=== PATIENT | female | born 1980 | race Caucasian/White ===

== ENCOUNTER 2017-05-06 12:32 | Outpatient (CLI) ==
[2016-03-22 21:35] VITALS: BMI 26.8
--- NOTE | 2017-05-06 13:28 | US ---
EXAM: Ultrasound pelvis HISTORY: Ovarian cyst, pelvic pain FINDINGS: Ultrasound pelvis, transvaginal. Transvaginal approach imaging was performed for improved resolution and anatomic definition. Uterus measured 8.7 x 4.4 x 5.2 cm. The endometrium was thickened at 1.27 cm. At least a small amou nt of simple pelvic ascites was seen. The right ovary measured 3.4 x 2.0 x 1.9 cm and the left ovary 2.9 x 1.9 x 2.0 cm. The ovaries appea red to have adequate blood flow and a few scattered small follicles, largest at 1.6 cm. . IMPRESSION: 1. Thickened endometrium. 2. At least a small amount of simple pelvic ascites. 3. Several small ovarian follicles were identified.
== END 2017-05-06 12:33 | disposition home or self-care (01) ==
LOC: RAD 12:32
PROVIDERS: ATTEND Physician Assistant
DX: L68.9 Hypertrichosis, unspecified (principal); R53.83 Other fatigue; N92.6 Irregular menstruation, unspecified; Z83.49 Family history of other endocrine, nutritional and metabolic diseases; Z87.42 Personal history of other diseases of the female genital tract
CPT/HCPCS: 36415; 80053; 80061; 84403; 84436; 84443; 84479

== ENCOUNTER 2017-10-18 17:19 | Emergency (ER) ==
[2017-10-18 17:36] VITALS: BP 125/75; TEMP 98.2; BMI 31.2
--- NOTE | 2017-10-18 17:45 | ED.PDOC ---
General ED Provider: Dr. DARIUS VILLALOBOS Chief Complaint: Toe Pain/Injury Stated Complaint: RT GREAT TOE PAIN. DROPPED 50 # BAG OF ICE ON HER FOOT AT WORK LAST NIGHT. Time Seen by Physician: 17:35 Mode of Arrival: Walk-In Information Source: Patient Exam Limitations: No limitations, Clinical condition Primary Care Provider: MICHELE HIDALGO Nursing and Triage Documentation Reviewed and Agree: Yes Does patient meet sepsis criteria?: No System Inflammatory Response Syndrome: Not Applicable Sepsis Protocol: For patient's 13 years and over: Temp is 96.8 and below OR 101 and greater Pulse >90 BPM Resp >20/minute Acutely Altered Mental Status Are patient's symptoms suggestive of a new infection, such as: -Pneumonia -Skin, Soft Tissue -Endocarditis -UTI -Bone, Joint Infection -Implantable Device -Acute Abdominal Infection -Wound Infection -Meningitis -Blood Stream Catheter Infection -Unknown Musculoskeletal Complaint Exam - Ankle/Foot Complaint/Exam Location of Injury: Reports: Right, Toe #1 Mechanism of Injury: Reports: Trauma Onset/Duration: 24 HR Symptoms Are: Reports: Still present Onset of Pain: Reports: Immediate Initial Severity: Severe Current Severity: Moderate Location: Reports: Discrete Character: Reports: Aching, Throbbing Alleviating: Reports: Rest Aggravating: Reports: Movement, Weight bearing Able to Bear Weight: Yes Associated Signs and Symptoms: Reports: Swelling, Redness, Bruising Related History: Denies: Similar episode Gout Risk Factors: Reports: None Related Surgical History: Reports: None Lower Extremity Findings: Present: Swelling (GREAT TOE/DISCOLORED), Warmth Achilles Tendon Abnormality: Yes Tenderness: Present: Metatarsals, Digits (DISTAL 1ST MTP JOINT AND GREAT TOE) Review of Systems - Review Of Systems Constitutional: Reports: No symptoms Eyes: Reports: No symptoms Ears, Nose, Mouth, Throat: Reports: No symptoms Respiratory: Reports: No symptoms Cardiac: Reports: No symptoms GI: Reports: No symptoms : Reports: No symptoms Musculoskeletal: Reports: No symptoms Skin: Reports: No symptoms Neurological: Reports: No symptoms Endocrine: Reports: No symptoms Hematologic/Lymphatic: Reports: No symptoms All Other Systems: Reviewed and Negative Past Medical History - Past Medical History Endocrine: Reports: None Cardiovascular: Reports: None Respiratory: Reports: None Hematological: Reports: None Gastrointestinal: Reports: GERD Genitourinary: Reports: None Neuro/Psych: Reports: Anxiety, Depression Musculoskeletal: Reports: None Cancer: Reports: None Last Menstrual Period: 5 days - Surgical History General Surgical History: Reports: Tubal ligation, - Family History Family History: Reports: None - Social History Smoking Status: Current every day smoker, Light tobacco smoker Hx Substance Use: Yes (HAS RX FOR MEDICAL WEED FOR ANXIETY) Alcohol Screening: None - Immunizations Tetanus Shot up to Date: (unknown) Physical Exam - Physical Exam Appearance: Well-appearing, No pain distress, Well-nourished Eyes: FRANCHESKA, EOMI, Conjunctiva clear ENT: Ears normal, Nose normal, Oropharynx normal Respiratory: Airway patent, Breath sounds clear, Breath sounds equal, Respirations nonlabored Cardiovascular: RRR, Pulses normal, No rub, No murmur GI/: Soft, Nontender, No masses, Bowel sounds normal, No Organomegaly Musculoskeletal: Normal strength, ROM intact, No calf tenderness, Edema (PAIN TO GREAT TOE-RT) Skin: Warm, Dry, Normal color Neurological: Sensation intact, Motor intact, Reflexes intact, Cranial nerves intact, Alert, Oriented Psychiatric: Affect appropriate, Mood appropriate Critical Care Note - Critical Care Note Total Time (mins): 0 Course - Course Orders, Labs, Meds: Orders Category Date Time Status FOOT, RIGHT 3 VIEWS Stat RADS 10/18/17 17:44 Completed Vital Signs: Temp Pulse Resp BP Pulse Ox 10/18/17 17:20 98.2 F 79 18 125/75 98 Departure - Departure Time of Disposition: 18:40 Disposition: HOME SELF-CARE Discharge Problem: Great toe pain, Contusion of great toe of right foot, Fracture of great toe Instructions: Contusion in Adults (ED), Toe Fracture (ED) Condition: Good Pt referred to PMD for follow-up: Yes (in next week for gabriella and work release) IPMP verified?: No Additional Instructions: Carter splint great toe Ice elevate Ibuprofen for pain Follow up pcp in next week Prescriptions: Ketorolac Tromethamine [Toradol] 10 mg PO Q6H PRN #20 tablet PRN Reason: pain rt foot Allergies/Adverse Reactions: Allergies codeine Allergy (Verified 10/18/17 17:26) Rash Home Medications: Ambulatory Orders Alprazolam 0.5 mg PO QID PRN 10/18/17 Dextroamphetamine/Amphetamine [Adderall 20 mg Tablet] 20 mg PO BID 10/18/17 Escitalopram Oxalate [Lexapro] 10 mg PO DAILY 10/18/17 Ketorolac Tromethamine [Toradol] 10 mg PO Q6H PRN #20 tablet 10/18/17 Disposition Discussed With: Patient
--- NOTE | 2017-10-18 18:06 | DI ---
Exam: Three views of the right foot. Comparison: None available. Reason for exam: Trauma. FINDINGS: No acute fracture or malalignment. The joint spaces are well maintained. There is mild d egenerative disease with osteophyte formation in the midfoot and a small calcaneal enthesiophyte. Impression: No acute fracture or dislocation in the right foot.
== END 2017-10-18 18:47 | disposition home or self-care (01) ==
LOC: ED 17:19
DX: S90.111A Contusion of right great toe without damage to nail, initial encounter (principal); W20.8XXA Other cause of strike by thrown, projected or falling object, initial encounter; Y92.9 Unspecified place or not applicable; Y99.0 Civilian activity done for income or pay; F17.210 Nicotine dependence, cigarettes, uncomplicated
CPT/HCPCS: 99283

== ENCOUNTER 2017-10-20 10:18 | Emergency (ER) ==
[2017-10-20 10:25] VITALS: BP 122/77; TEMP 97.8; BMI 30.6
--- NOTE | 2017-10-20 10:33 | ED.PDOC ---
General ED Provider: Dr. 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 Was evaluated by this provider seen this er and xray done revealing suspected fracture tuft Great toe. Was discharged to home being advised to post injury care. Advised to see her PCP this week. 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 States she is not sure what else to do. Time Seen by Physician: 10:20 Mode of Arrival: Walk-In Information Source: Patient Exam Limitations: No limitations Primary Care Provider: MICHELE HIDALGO Referred to ED by: Other (Self) Seen Within Last 72 Hours for Same Complaint By: ED Nursing and Triage Documentation Reviewed and Agree: Yes (injured rt great toe on sat--states had 22 lb bag of ice was thrown onto to) Does patient meet sepsis criteria?: No System Inflammatory Response Syndrome: Not Applicable Sepsis Protocol: For patient's 13 years and over: Temp is 96.8 and below OR 101 and greater Pulse >90 BPM Resp >20/minute Acutely Altered Mental Status Are patient's symptoms suggestive of a new infection, such as: -Pneumonia -Skin, Soft Tissue -Endocarditis -UTI -Bone, Joint Infection -Implantable Device -Acute Abdominal Infection -Wound Infection -Meningitis -Blood Stream Catheter Infection -Unknown Musculoskeletal Complaint Exam - Ankle/Foot Complaint/Exam Location of Injury: Reports: Toe #1 Mechanism of Injury: Reports: Trauma Symptoms Are: Reports: Still present Onset of Pain: Reports: Immediate Initial Severity: Severe Current Severity: Moderate Location: Reports: Diffuse (Great toe and inner foot) Character: Reports: Sharp, Aching, Throbbing Alleviating: Reports: Rest, OTC meds Aggravating: Reports: Movement, Weight bearing Associated Signs and Symptoms: Reports: Swelling, Bruising, Numbness. Denies: Redness, Fever, Weakness, Tingling Related History: Reports: Occupational injury Gout Risk Factors: Reports: None Related Surgical History: Reports: None Lower Extremity Findings: Present: Swelling, Tenderness, Limited range of motion Achilles Tendon Abnormality: No Tenderness: Present: Midfoot (Plantar aspect) Limited Range of Motion: Present: Plantarflexion Differential Diagnosis: Contusion, Sprain, Other (fracture) Review of Systems - Review Of Systems Constitutional: Reports: No symptoms Eyes: Reports: No symptoms Ears, Nose, Mouth, Throat: Reports: No symptoms Respiratory: Reports: No symptoms Cardiac: Reports: No symptoms GI: Reports: No symptoms : Reports: No symptoms Musculoskeletal: Reports: Joint pain Skin: Reports: Bruising (rt great toe) Neurological: Reports: No symptoms Endocrine: Reports: No symptoms Hematologic/Lymphatic: Reports: No symptoms All Other Systems: Reviewed and Negative Past Medical History - Past Medical History Endocrine: Reports: None Cardiovascular: Reports: None Respiratory: Reports: None Hematological: Reports: None Gastrointestinal: Reports: GERD Genitourinary: Reports: None Neuro/Psych: Reports: Anxiety, Depression Musculoskeletal: Reports: None Cancer: Reports: None Last Menstrual Period: past week - Surgical History General Surgical History: Reports: Tubal ligation, - Family History Family History: Reports: None - Social History Smoking Status: Current every day smoker, Light tobacco smoker Hx Substance Use: Yes (HAS RX FOR MEDICAL WEED FOR ANXIETY) Alcohol Screening: None Physical Exam - Physical Exam Appearance: Well-appearing, No pain distress, Well-nourished Ill-appearing: None Pain Distress: Moderate Eyes: FRANCHESKA, EOMI, Conjunctiva clear ENT: Ears normal, Nose normal, Oropharynx normal Respiratory: Airway patent, Breath sounds clear, Breath sounds equal, Respirations nonlabored Cardiovascular: RRR, Pulses normal, No rub, No murmur GI/: Soft, Nontender, No masses, Bowel sounds normal, No Organomegaly Musculoskeletal: Normal strength, ROM intact, No edema, No calf tenderness Skin: Warm, Dry, Normal color Neurological: Sensation intact, Motor intact, Reflexes intact, Cranial nerves intact, Alert, Oriented Psychiatric: Affect appropriate, Mood appropriate Critical Care Note - Critical Care Note Total Time (mins): 0 Course - Course Orders, Labs, Meds: Orders Category Date Time Status CT FOOT RIGHT WITHOUT CONTRAST Stat RADS 10/20/17 10:35 Ordered Vital Signs: Temp Pulse Resp BP Pulse Ox 10/20/17 10:18 97.8 F 91 H 20 122/77 98 Departure - Departure Time of Disposition: 11:40 Disposition: HOME SELF-CARE Discharge Problem: Great toe pain, Fractured great toe, Contusion of great toe of right foot, Contusion of right foot, subsequent encounter Instructions: Foot Contusion (ED) Condition: Good Pt referred to PMD for follow-up: Yes (PCP or Orthopedic care) IPMP verified?: No Additional Instructions: Application of Ice to area of pain and keep Rt Foot Elevated Take prev prescribed Toradol every 6 hours as needed and additional tx with Tylenol 650 mg alternating with Toradol Wear Orthopedic shoe for comfort Follow up PCP as directed and remain off work through time of appointment next Thursday10/27/2017 Allergies/Adverse Reactions: Allergies codeine Allergy (Verified 10/20/17 10:25) Rash Home Medications: Ambulatory Orders Alprazolam 0.5 mg PO QID PRN 10/18/17 Dextroamphetamine/Amphetamine [Adderall 20 mg Tablet] 20 mg PO BID 10/18/17 Escitalopram Oxalate [Lexapro] 10 mg PO DAILY 10/18/17 Ketorolac Tromethamine [Toradol] 10 mg PO Q6H PRN #20 tablet 10/18/17 Disposition Discussed With: Patient
--- NOTE | 2017-10-20 11:34 | CT ---
EXAM: CT of the right foot without contrast History: Trauma of the right foot. Comparison: Right foot radiograph 10/18/2017 Technique: Multiplanar CT images through the right foot were obtained without the administration of IV contrast Findings: No acute fracture or dislocation. Mild narrowing of the first MTP joint with small osteop hytes. No abnormal calcifications or radiopaque foreign bodies. Small to moderate plantar spur. Impression: No acute osseous abnormalities
== END 2017-10-20 12:05 | disposition home or self-care (01) ==
LOC: ED 10:18
DX: M79.674 Pain in right toe(s) (principal); S90.111D Contusion of right great toe without damage to nail, subsequent encounter; S90.31XD Contusion of right foot, subsequent encounter; W20.8XXD Other cause of strike by thrown, projected or falling object, subsequent encounter; Y92.511 Restaurant or cafe as the place of occurrence of the external cause; Y99.0 Civilian activity done for income or pay; F17.210 Nicotine dependence, cigarettes, uncomplicated
CPT/HCPCS: 99282

== ENCOUNTER 2018-07-03 15:27 | Emergency (ER) ==
[2018-07-03 15:31] VITALS: BP 122/84; TEMP 99; BMI 29.2
--- NOTE | 2018-07-03 15:58 | ED.PDOC ---
General ED Provider: Dr. DARIUS VILLALOBOS Chief Complaint: Sore Throat Stated Complaint: Onset yesterday evening. 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 Time Seen by Physician: 15:50 Mode of Arrival: Walk-In Information Source: Patient Exam Limitations: No limitations Primary Care Provider: KHUSHBOO PRETTY Nursing and Triage Documentation Reviewed and Agree: Yes Does patient meet sepsis criteria?: No System Inflammatory Response Syndrome: Not Applicable Sepsis Protocol: For patient's 13 years and over: Temp is 96.8 and below OR 101 and greater Pulse >90 BPM Resp >20/minute Acutely Altered Mental Status Are patient's symptoms suggestive of a new infection, such as: -Pneumonia -Skin, Soft Tissue -Endocarditis -UTI -Bone, Joint Infection -Implantable Device -Acute Abdominal Infection -Wound Infection -Meningitis -Blood Stream Catheter Infection -Unknown EENT Complaint Exam - Throat Complaint/Exam Onset/Duration: Last evening Symptoms Are: Still present Timimg: Constant Initial Severity: Moderate Current Severity: Mild Aggravating: Reports: Eating Alleviating: Reports: None Associated Signs and Symptoms: Reports: Dysphagia, Nasal congestion. Denies: Fever, Drooling, Foreign body sensation, Chills, Cough, Wheezing, Hoarseness, Sinus discomfort, Difficulty breathing, Lethargy, Irritability, Decreased activity, Vomiting, Diarrhea, Decreased hearing, Ear drainage Uvula Midline: Yes Pearl-tonsillar Fluctuence: No Scarlatinaform Rash Present: No Lesions: Absent: Lip, Pharynx Exanthem: Absent: Lip, Pharynx Vesicles: Absent: Lip, Pharynx Stridor Present: No Sinus Tenderness Present: No Tonsillar Hypertrophy Present: No Tonsillar Exudate Present: No Pearl-tonsillar Swelling Present: No Adenopathy Present: No Splenomegaly Present: No Differential Diagnoses: Pharyngitis, Tonsillitis Review of Systems - Review Of Systems Constitutional: Reports: Malaise Eyes: Reports: No symptoms Ears, Nose, Mouth, Throat: Reports: No symptoms, Throat pain Respiratory: Reports: No symptoms Cardiac: Reports: No symptoms GI: Reports: No symptoms : Reports: No symptoms Musculoskeletal: Reports: No symptoms Skin: Reports: No symptoms Neurological: Reports: No symptoms Endocrine: Reports: No symptoms Hematologic/Lymphatic: Reports: No symptoms All Other Systems: Reviewed and Negative Past Medical History - Past Medical History Previously Healthy: Yes Endocrine: Reports: None Cardiovascular: Reports: None Respiratory: Reports: None Hematological: Reports: None Gastrointestinal: Reports: GERD Genitourinary: Reports: None Neuro/Psych: Reports: Anxiety, Depression Musculoskeletal: Reports: None Cancer: Reports: None Last Menstrual Period: [id number] - Surgical History General Surgical History: Reports: Tubal ligation, - Family History Family History: Reports: None - Social History Smoking Status: Current every day smoker, Light tobacco smoker Hx Substance Use: Yes (HAS RX FOR MEDICAL WEED FOR ANXIETY) Alcohol Screening: None - Immunizations Tetanus Shot up to Date: Yes Physical Exam - Physical Exam Appearance: Well-appearing Ill-appearing: Mild Pain Distress: Mild Eyes: FRANCHESKA, EOMI, Conjunctiva clear ENT: Ears normal, Nose normal, Oropharynx normal, Erythema (pharynx) Neck: Supple Respiratory: Airway patent Cardiovascular: RRR, Pulses normal, No rub, No murmur GI/: Soft, Nontender, No masses, Bowel sounds normal, No Organomegaly Musculoskeletal: Normal strength, ROM intact, No edema, No calf tenderness Skin: Warm, Dry, Normal color Neurological: Sensation intact, Motor intact, Reflexes intact, Cranial nerves intact, Alert, Oriented Psychiatric: Affect appropriate, Mood appropriate Critical Care Note - Critical Care Note Total Time (mins): 0 Course - Course Orders, Labs, Meds: Orders Category Date Time Status FLU A/B MOLECULAR Stat LAB 07/03/18 15:35 Received RAPID STREP SCREEN [MOLECULAR GROUP A STREP] Stat LAB 07/03/18 15:35 Received Vital Signs: Temp Pulse Resp BP Pulse Ox 07/03/18 15:28 99.0 F 77 18 122/84 97 Departure - Departure Time of Disposition: 16:15 Disposition: HOME SELF-CARE Discharge Problem: Tonsillitis Instructions: Pharyngitis (ED), Upper Respiratory Infection (DC), Tonsillitis ( ED) Condition: Good Pt referred to PMD for follow-up: Yes IPMP verified?: No Additional Instructions: Maintain adequate oral fluids intake Advance diet per tolerance Tylenol for pain or temp above 101 degrees Rest Off work for 48 hrs Zithromax as directed See PCP in 5-8 days as needed for follow up Prescriptions: Azithromycin [Zithromax] 250 mg PO DAILY #6 tablet Allergies/Adverse Reactions: Allergies codeine Allergy (Verified 07/03/18 15:31) Rash Home Medications: Ambulatory Orders Alprazolam 0.5 mg PO QID PRN 10/18/17 Dextroamphetamine/Amphetamine [Adderall 20 mg Tablet] 20 mg PO BID 10/18/17 Escitalopram Oxalate [Lexapro] 10 mg PO DAILY 10/18/17 Azithromycin [Zithromax] 250 mg PO DAILY #6 tablet 07/03/18 Disposition Discussed With: Patient
== END 2018-07-03 17:00 | disposition home or self-care (01) ==
LOC: ED 15:27
DX: J03.90 Acute tonsillitis, unspecified (principal); F17.210 Nicotine dependence, cigarettes, uncomplicated
CPT/HCPCS: 87502; 87651; 99283

== ENCOUNTER 2018-09-29 11:06 | Emergency (ER) ==
[2018-09-29 11:11] VITALS: BP 124/77; TEMP 99.3; BMI 29.5
--- NOTE | 2018-09-29 11:20 | ED.PDOC ---
General ED Provider: Dr. OLEKSANDR LION Chief Complaint: Respiratory Complaint Stated Complaint: cough, congestion , sinus pain Time Seen by Physician: 11:11 (seen with kim bonilla ) Mode of Arrival: Walk-In Information Source: Patient Exam Limitations: No limitations Nursing and Triage Documentation Reviewed and Agree: Yes Does patient meet sepsis criteria?: No System Inflammatory Response Syndrome: Not Applicable Sepsis Protocol: For patient's 13 years and over: Temp is 96.8 and below OR 101 and greater Pulse >90 BPM Resp >20/minute Acutely Altered Mental Status Are patient's symptoms suggestive of a new infection, such as: -Pneumonia -Skin, Soft Tissue -Endocarditis -UTI -Bone, Joint Infection -Implantable Device -Acute Abdominal Infection -Wound Infection -Meningitis -Blood Stream Catheter Infection -Unknown Respiratory Complaint Exam - Respiratory Complaint/Exam Onset/Duration: 4 days Symptoms Are: Resolved Timing: Intermittent Initial Severity: Moderate Current Severity: Mild Location: Nose, Throat, Chest Character: Reports: Non-productive cough, Dry cough Aggravating: Reports: URI Alleviating: Reports: Spontaneous resolution Associated Signs and Symptoms: Reports: URI, Nasal congestion. Denies: Rapid breathing, Dyspnea, Fever, Chills, Chest pain, Pleuritic chest pain, Wheezing, Hemoptysis, Dizziness, Calf pain, Calf swelling, Edema, Hoarseness, Sinus discomfort, Vomiting, Sore throat, Weight loss, Decreased oral intake, Increased thirst, Increased appetite, Increased urination Related History: Reports: Similar episode (sinus pain ) History of Healthcare-Acquired Pneumonia: No Related Surgical History: Reports: None Pulmonary Embolism Risk Factors: Smoking Cardiac Risk Factors: Reports: Smoking Pseudomonas Risk Factors: Reports: None Tuberculosis Risk Factors: Reports: None Status Asthmaticus Risk Factors: Reports: None Home Oxygen Use: No Recent Stress Test: No Recent Echo/LV Function: No Current Antibiotic Use: No Current Asthma Medication Use: No Respiratory Distress: None Inadequate Respiratory Effort: No Dysphagia Present: No Stridor Present: No JVD Present: No Accessory Muscle Use: No Retractions: Not Present Diminished Breath Sounds: No Sinus Tenderness: None Grunting Respirations: No Kussmaul Respirations: No Differential Diagnoses: Bronchitis, Other (sinusitis) Review of Systems - Review Of Systems Constitutional: Reports: No symptoms Eyes: Reports: No symptoms Ears, Nose, Mouth, Throat: Reports: No symptoms Respiratory: Reports: Cough Cardiac: Reports: No symptoms GI: Reports: No symptoms : Reports: No symptoms Musculoskeletal: Reports: No symptoms Skin: Reports: No symptoms Neurological: Reports: No symptoms Endocrine: Reports: No symptoms Hematologic/Lymphatic: Reports: No symptoms All Other Systems: Reviewed and Negative Past Medical History - Past Medical History Previously Healthy: Yes Endocrine: Reports: None Cardiovascular: Reports: None Respiratory: Reports: None Hematological: Reports: None Gastrointestinal: Reports: GERD Genitourinary: Reports: None Neuro/Psych: Reports: Anxiety, Depression Musculoskeletal: Reports: None Cancer: Reports: None Last Menstrual Period: 3 DAYS PRIOR - Surgical History General Surgical History: Reports: Tubal ligation, - Family History Family History: Reports: None - Social History Smoking Status: Current every day smoker, Light tobacco smoker Hx Substance Use: Yes (HAS RX FOR MEDICAL WEED FOR ANXIETY) Alcohol Screening: None Physical Exam - Physical Exam Appearance: Well-appearing, No pain distress, Well-nourished Eyes: FRANCHESKA, EOMI, Conjunctiva clear ENT: Nose normal (maxillary sinus pain ) Respiratory: Rhonchi Cardiovascular: RRR, Pulses normal, No rub, No murmur GI/: Soft, Nontender, No masses, Bowel sounds normal, No Organomegaly Musculoskeletal: Normal strength, ROM intact, No edema, No calf tenderness Skin: Warm, Dry, Normal color Neurological: Sensation intact, Motor intact, Reflexes intact, Cranial nerves intact, Alert, Oriented Psychiatric: Affect appropriate, Mood appropriate Critical Care Note - Critical Care Note Total Time (mins): 0 Course - Course Vital Signs: Temp Pulse Resp BP Pulse Ox 09/29/18 11:06 99.3 F 86 18 124/77 96 Departure - Departure Time of Disposition: 11:21 Disposition: HOME SELF-CARE Discharge Problem: Bronchitis Sinusitis Qualifiers: Sinusitis location: maxillary Chronicity: acute Recurrence: recurrent Qualified Code(s): J01.01 - Acute recurrent maxillary sinusitis Instructions: Sinusitis (ED), Rhinosinusitis (ED), Acute Bronchitis (ED), Effects of Smoking, Alcohol, and Medicines on (ED), How to Stop Smoking (ED), Secondhand Smoke Exposure in Children (ED) Condition: Good Pt referred to PMD for follow-up: Yes IPMP verified?: No Additional Instructions: Please call your Family Physician as soon as possible to schedule a follow-up appointment. Prescriptions: Amoxicillin 500 mg PO Q6HR #40 tablet Prednisone 40 mg PO DAILYWM #5 tablet Allergies/Adverse Reactions: Allergies codeine Allergy (Verified 09/29/18 11:17) Rash Home Medications: Ambulatory Orders Alprazolam 0.5 mg PO QID PRN 10/18/17 Dextroamphetamine/Amphetamine [Adderall 20 mg Tablet] 20 mg PO BID 10/18/17 Escitalopram Oxalate [Lexapro] 10 mg PO DAILY 10/18/17 Amoxicillin 500 mg PO Q6HR #40 tablet 09/29/18 Prednisone 40 mg PO DAILYWM #5 tablet 09/29/18 Disposition Discussed With: Patient
[2018-09-29] MEDS ORDERED: DUONEB NEB STA (11:23)
== END 2018-09-29 12:07 | disposition home or self-care (01) ==
LOC: ED 11:06
DX: J40 Bronchitis, not specified as acute or chronic (principal); J01.01 Acute recurrent maxillary sinusitis; F17.210 Nicotine dependence, cigarettes, uncomplicated
CPT/HCPCS: 94640; 99282